=== PATIENT | male | born 2000 | race African-American/Black ===

== ENCOUNTER 2021-10-11 21:49 | Inpatient (IN) | payer OTHER, SELFPAY ==
--- NOTE | ~2021-10-11 | CT_ITS ---
EXAMINATION: CT ABDOMEN AND PELVIS WITH CONTRAST CLINICAL INFORMATION: Right lower quadrant pain. COMPARISON: None TECHNIQUE: Multidetector volumetric images were obtained from the superior aspect of the liver through the pubic symphysis following administration 85 mL of Omnipaque 350 intravenous contrast. Sagittal and coronal reformatted images were obtained on the technologist's workstation. Oral contrast: No This CT examination was performed using dose optimization techniques as appropriate, variously including the following: *Automated exposure control *Adjustment of mA and/or kV according to patient size (this includes techniques or standardized protocols for targeted exams where dose is matched to indication/reason for exam; i.e. extremities or head) *Use of iterative reconstruction technique DLP: 592 mGy-cm FINDINGS: LUNG BASES: The visualized lung bases are unremarkable. LIVER, GALLBLADDER, AND BILIARY TREE: The liver is normal in size, shape, and attenuation. No focal hepatic lesion or biliary ductal dilatation is present. The gallbladder is unremarkable with no evidence of radiopaque gallstones, gallbladder wall thickening, or obvious pericholecystic inflammatory changes. PANCREAS: Unremarkable. SPLEEN: Unremarkable. ADRENAL GLANDS: Unremarkable. KIDNEYS AND URETERS: The kidneys are normal in size, shape, and attenuation. No hydronephrosis, hydroureter, or calculi seen. No perinephric stranding. BLADDER: Normally distended bladder with circumferential mild wall thickening. GASTROINTESTINAL TRACT: The stomach is unremarkable. Normal caliber of the small bowel. There is no obstruction. While the appendix is normal in size measuring 0.7 cm, there does appear to be mild wall thickening with faint adjacent inflammation. No free air or fluid collection. The remainder of the colon is unremarkable. ABDOMINAL WALL: No significant hernia is appreciated. LYMPH NODES: Normal. VASCULAR: Unremarkable. PELVIC VISCERA: The prostate and seminal vesicles are unremarkable. OSSEOUS STRUCTURES: No acute or suspicious osseous abnormality. CT/CT abdomen pelvis w con IMPRESSION: While the appendix is normal in size, there does appear to be mild associated inflammation which is concerning for acute appendicitis. Mild circumferential bladder wall thickening could be secondary to underdistention, though cystitis is possible. Fleischner guidelines were followed.
[2021-10-11 21:52] VITALS: BP 152/81; PULSE 98; RESP 14; TEMP 37.4; O2SAT 100; BMI 25.3
[2021-10-11 22:33] VITALS: BP 139/71; PULSE 99; RESP 16; TEMP 37.2; O2SAT 100
--- NOTE | 2021-10-11 22:37 | ED_ITS ---
HPI - Abdominal Pain General Chief Complaint: Abdominal Pain Stated Complaint: lower abd pain Time Seen by Provider: 10/11/21 22:35 Source: patient Mode of arrival: ambulatory Limitations: no limitations History of Present Illness HPI narrative: Patient no significant past medical history woke up in the morning with mid abdominal pain radiating to right lower quadrant getting worse slowly unable to ambulate because of pain. Does not feel hungry slight nauseated no vomiting no fever no chills patient never had similar pain in the past no problem and urination no flank pain Related Data Allergies Allergy/AdvReac Type Severity Reaction Status Date / Time shellfish derived AdvReac Unknown Unknown Verified 10/11/21 22:02 Review of Systems Review of Systems Yes all other systems are reviewed and are negative Physical Exam Verdana 4l Vital Signs: Verdana 4d Verdana 4d Vital Signs: Verdana 4d Verdana 4Bd Last Vital Signs Verdana 4d Automatic Centrifugal Station Operator New 4d Automatic Centrifugal Station Operator New 4d Temp 98.4 F 10/12/21 00:42 Automatic Centrifugal Station Operator New 4d Pulse 89 10/12/21 00:42 Automatic Centrifugal Station Operator New 4d Resp 12 10/12/21 00:42 BP 132/76 10/12/21 00:42 Pulse Ox 100 10/12/21 00:42 BMI result Body Mass Index 25.3 Appearance: Alert. Oriented X3. In moderate distress Eyes: No pallor or icterus ENT: Pharynx normal. Oral Mucosa moist Neck: Normal inspection. Neck supple. CVS: Normal heart rate and rhythm. Pulses normal. Respiratory: No respiratory distress. Equal air entry bilateral, no wheezing/rales/rhonchi Abdomen: Soft, tenderness right lower quadrant with guarding no rebound tenderness Bowel sounds are present, no mass palpable, no CVA tenderness Skin: Skin warm and dry. Normal skin color. Normal skin turgor. Extremities: No lower extremity edema. No calf tenderness Neuro: Oriented X 3. MDM - Abdominal Pain MDM Narrative Medical decision making narrative: 1 AM Patient with significant right lower quadrant pain clinically appendicitis leukocytosis will start on Zosyn pending CT scan 1:15 CT scan showed normal size appendix with surrounding inflammation suggestive acute appendicitis call surgery for admission Case with surgeon Dr. Lo advised admission plan for surgery in the morning Lab Data Attestation: I reviewed the patient's lab results. Result diagrams: 10/11/21 23:16 10/11/21 23:16 Labs: Lab Results 10/11/21 10/11/21 10/11/21 Range/Units 23:16 23:16 23:16 WBC 17.2 H (4.8-10.8) X10*3/uL RBC 5.56 (4.60-5.80) X10*6/uL Hgb 16.8 (14.0-18.0) g/dl Hct 50.2 (42.0-52.0) % MCV 90.3 (80.0-98.0) fL MCH 30.2 (27.0-33.0) pg MCHC 33.5 (31.0-36.0) g/dl RDW 12.7 (11.0-16.0) % Plt Count 333 (160-400) X10*3/uL MPV 9.3 L (9.4-12.4) fL Immature Gran % (Auto) 0.3 (0.0-0.4) % Neut % (Auto) 79.8 H (45-73) % Lymph % (Auto) 9.5 L (20-40) % [place] % (Auto) 9.4 (2-11) % Eos % (Auto) 0.8 (0-4) % Baso % (Auto) 0.2 (0-2) % Lymph # (Auto) 1.6 (1.2-4.9) X10*3/uL [place] # (Auto) 1.6 H (0.1-1.2) X10*3/uL Eos # (Auto) 0.1 (0.0-0.4) X10*3/uL Baso # (Auto) 0.0 (0.0-0.2) X10*3/uL Abs Immat Gran (auto) 0.06 H (0.00-0.03) X10*3/uL Absolute Neuts (auto) 13.7 H (2.0-8.3) x10*3/uL Absolute Nucleated RBC 0.000 (0.0-0.012) X10*3/uL Nucleated RBC % (auto) 0.0 (0.0-0.2) /100WBC Smear Tech's Comments VERIFIED Sodium 140 (135-145) mmol/L Potassium 4.7 (3.3-5.1) mmol/L Chloride 103 (96-108) mmol/L Carbon Dioxide 27 (22-29) mmol/L Anion Gap 15 (12-20) BUN 14 (9-16) mg/dL Creatinine 0.99 (0.5-1.4) mg/dL Estim Creat Clear Calc 129.5 Estimated GFR > 60 Random Glucose 84 (60-115) mg/dL Lactic Acid 1.3 (0.5-2.0) mmol/L Calcium 10.2 (8.4-10.2) mg/dL Total Bilirubin 0.4 (0.0-1.0) mg/dL Direct Bilirubin 0.2 (0.0-0.5) mg/dL AST 23 (5-37) U/L ALT 21 (0-40) U/L Alkaline Phosphatase 76 (39-117) U/L Total Protein 8.3 H (6.5-8.0) g/dL Albumin 4.7 (3.5-5.0) g/dL Urine Color Urine Appearance Urine pH (5.0-8.0) Ur Specific [place] (1.005-1.025) Urine Protein (NEG-TRACE) MG/DL Urine Glucose (UA) (NEG) MG/DL Urine Ketones (NEG) MG/DL Urine Blood (NEG) Urine Nitrite (NEG) Ur Leukocyte Esterase (NEG) COVID-19 (GERALDINE) (Negative) COVID-19 Clin Com 10/11/21 10/11/21 Range/Units 23:16 23:37 WBC (4.8-10.8) X10*3/uL RBC (4.60-5.80) X10*6/uL Hgb (14.0-18.0) g/dl Hct (42.0-52.0) % MCV (80.0-98.0) fL MCH (27.0-33.0) pg MCHC (31.0-36.0) g/dl RDW (11.0-16.0) % Plt Count (160-400) X10*3/uL MPV (9.4-12.4) fL Immature Gran % (Auto) (0.0-0.4) % Neut % (Auto) (45-73) % Lymph % (Auto) (20-40) % [place] % (Auto) (2-11) % Eos % (Auto) (0-4) % Baso % (Auto) (0-2) % Lymph # (Auto) (1.2-4.9) X10*3/uL [place] # (Auto) (0.1-1.2) X10*3/uL Eos # (Auto) (0.0-0.4) X10*3/uL Baso # (Auto) (0.0-0.2) X10*3/uL Abs Immat Gran (auto) (0.00-0.03) X10*3/uL Absolute Neuts (auto) (2.0-8.3) x10*3/uL Absolute Nucleated RBC (0.0-0.012) X10*3/uL Nucleated RBC % (auto) (0.0-0.2) /100WBC Smear Tech's Comments Sodium (135-145) mmol/L Potassium (3.3-5.1) mmol/L Chloride (96-108) mmol/L Carbon Dioxide (22-29) mmol/L Anion Gap (12-20) BUN (9-16) mg/dL Creatinine (0.5-1.4) mg/dL Estim Creat Clear Calc Estimated GFR Random Glucose (60-115) mg/dL Lactic Acid (0.5-2.0) mmol/L Calcium (8.4-10.2) mg/dL Total Bilirubin (0.0-1.0) mg/dL Direct Bilirubin (0.0-0.5) mg/dL AST (5-37) U/L ALT (0-40) U/L Alkaline Phosphatase (39-117) U/L Total Protein (6.5-8.0) g/dL Albumin (3.5-5.0) g/dL Urine Color STRAW Urine Appearance CLEAR Urine pH 6.5 (5.0-8.0) Ur Specific [place] 1.020 (1.005-1.025) Urine Protein NEG (NEG-TRACE) MG/DL Urine Glucose (UA) NEG (NEG) MG/DL Urine Ketones NEG (NEG) MG/DL Urine Blood NEG (NEG) Urine Nitrite NEG (NEG) Ur Leukocyte Esterase NEG (NEG) COVID-19 (GERALDINE) Negative (Negative) COVID-19 Clin Com See Note Discharge Plan Discharge Clinical Impression: Acute appendicitis Patient Disposition: Admitted As Inpatient [facility] Past Medical History Medical History No known health problems Social History Social History Advance Directives: No
[2021-10-11 23:19] VITALS: RESP 16
[2021-10-11] MEDS: ondansetron HCL 4 MG/2 ML VIAL IVPUSH (23:19)
[2021-10-11] MEDS: Morphine Sulfate 4 MG/ML CARTRIDGE IVPUSH (23:19)
[2021-10-11] MEDS: 0.9 % Sodium Chloride 1,000 ML 999 ML IV (23:21)
[2021-10-11 23:24] LABS: Basophils Percent Auto 0.2 % (0-2); Eosinophils Absolute Auto 0.1 X10*3/uL (0.0-0.4); Eosinophils Percent Auto 0.8 % (0-4); Hematocrit 50.2 % (42.0-52.0); Hemoglobin 16.8 g/dl (14.0-18.0); Imm Gran Abs Auto 0.06 X10*3/uL (0.00-0.03); Imm Gran Pct Auto 0.3 % (0.0-0.4); Lymphocytes Absolute Auto 1.6 X10*3/uL (1.2-4.9); Lymphocytes Percent Auto 9.5 % (20-40); Mean Corpuscular HGB Conc 33.5 g/dl (31.0-36.0); Mean Corpuscular Hemoglobin 30.2 pg (27.0-33.0); Mean Corpuscular Volume 90.3 fL (80.0-98.0); Mean Platelet Volume 9.3 fL (9.4-12.4); Monocytes Absolute Auto 1.6 X10*3/uL (0.1-1.2); Monocytes Percent Auto 9.4 % (2-11); Neutrophils Absolute Auto 13.7 x10*3/uL (2.0-8.3); Neutrophils Percent Auto 79.8 % (45-73); Platelet Count 333 X10*3/uL (160-400); Red Blood Count 5.56 X10*6/uL (4.60-5.80); Red Cell Distribution Width 12.7 % (11.0-16.0); SCAN SMEAR FLAG 1; White Blood Count 17.2 X10*3/uL (4.8-10.8)
[2021-10-11 23:27] LABS: MANUAL DIFF FLAG SCAN
[2021-10-11 23:38] LABS: COVID-19 Test Negative (Negative)
[2021-10-11 23:41] LABS: SLIDE REVIEW VERIFIED
[2021-10-11 23:44] LABS: Appearance Urine CLEAR; Color Urine STRAW; Glucose Urine UA NEG (NEG); Leukocyte Esterase Urine NEG (NEG); Nitrite Urine NEG (NEG); PH 6.5 (5.0-8.0); Urine Blood NEG (NEG); Urine Ketones NEG (NEG); Urine Protein NEG (NEG-TRACE)
[2021-10-11 23:46] LABS: Lactic Acid 1.3 mmol/L (0.5-2.0)
[2021-10-12] VITALS (19 sets, daily range): BP systolic 107–148; BP diastolic 51–78; PULSE 78–98; RESP 12–20; TEMP 36.3–36.9; O2SAT 96–100; BMI 25.7
[2021-10-12] MEDS: Piperacillin Sodium/Tazobactam 3.375 GM in 0.9 % Sodium Chloride 50 ML IV ×2 (00:03→06:04)
[2021-10-12 00:12] LABS: Alanine Aminotransferase 21 U/L (0-40); Albumin Level 4.7 g/dL (3.5-5.0); Alkaline Phosphatase 76 U/L (39-117); Anion Gap 15 (12-20); Aspartate Amino Transferase 23 U/L (5-37); Bilirubin Direct 0.2 mg/dL (0.0-0.5); Bilirubin Total 0.4 mg/dL (0.0-1.0); Blood Urea Nitrogen 14 mg/dL (9-16); Calcium 10.2 mg/dL (8.4-10.2); Carbon Dioxide 27 mmol/L (22-29); Chloride 103 mmol/L (96-108); Creatinine Clr Calc Pharmacy 129.5; Estimated Glomerular Filt Rate > 60; Glucose Random 84 mg/dL (60-115); Potassium 4.7 mmol/L (3.3-5.1); Sodium 140 mmol/L (135-145); Total Protein 8.3 g/dL (6.5-8.0)
[2021-10-12] MEDS: iohexoL 350 MG/ML 100 ML INFUS..BTL 85 ML IV (01:02)
[2021-10-12] MEDS: 0.9 % Sodium Chloride 1,000 ML 100 ML IVCONT ×2 (02:53→14:02)
[2021-10-12] MEDS: Morphine Sulfate 4 MG/ML CARTRIDGE IVPUSH (03:21)
--- NOTE | 2021-10-12 06:03 | PC.NURSE ---
PT stated that he only feels pain when he moves around in bed.
--- NOTE | 2021-10-12 07:21 | PC.NURSE ---
pt in bed in no acute distress with good pain control. he denies nausea. awaiting surgical consult
--- NOTE | 2021-10-12 08:34 | P.HPGS_ITS ---
History of Present Illness History of Present Illness Date of Service: 10/12/21 <Balbina Vidal PA-C - Last Filed: 10/12/21 08:50> 10/12/21 <Long Harrison MD - Last Filed: 10/12/21 09:10> Chief complaint: appendicitis <Balbina Vidal PA-C - Last Filed: 10/12/21 08:50> Narrative: Angel Hamm is a 20 year old healthy male who presented to the ED with complaints of acute onset of abdominal pain. He reports yesterday morning he was awoken out of sleep from the pain. It began periumbilically and e ventually migrated to the RLQ where it has persisted. It is severe. It is associated with anorexia and nausea without vomiting. He denies fever, chills, diarrhea, change in bowel habits, previous episodes of similar pain. Work up in the ED included CT scan abd/pelvis which showed mild wall thickening with faint adjacent inflammation of the appendix. Labs revealed a leukocytosis of 17.2. He reports the pain medication helps a little but the pain is still present and becomes severe with movement. <Balbina Vidal PA-C - Last Filed: 10/12/21 08:50> Review of Systems Verdana 4l Constitutional: Verdana 4d Constitutional: Verdana 4d Verdana 4d Reports as per HPI, Reports anorexia, Denies fever(s), Denies night sweats and Denies weight loss Verdana 4Il <Balbina Vidal PA-C - Last Filed: 10/12/21 08:50> Verdana 4d Verdana 4l ENT: Verdana 4d Denies dizziness Verdana 4Il <Balbina Vidal PA-C - Last Filed: 10/12/21 08:50> Verdana 4d Verdana 4l Cardiovascular: Verdana 4d Cardiovascular: Verdana 4d Verdana 4d Denies chest pain, Denies palpitations and Denies dyspnea Verdana 4Il <MELISSA Long Last Filed: 10/12/21 08:50> Verdana 4d Verdana 4l Respiratory: Verdana 4d Verdana 4d Respiratory: Verdana 4d Denies cough and Denies dyspnea Verdana 4Il <Balbina Vidal PA-C - Last Filed: 10/12/21 08:50> Verdana 4d Verdana 4l Gastrointestinal: Verdana 4d Gastrointestinal: Verdana 4d Verdana 4d Reports as per HPI and Denies hematochezia Verdana 4Il <Balbina Vidal PA-C - Last Filed: 10/12/21 08:50> Verdana 4d Verdana 4l Genitourinary: Verdana 4d Verdana 4d Genitourinary: Verdana 4d Denies hematuria and Denies dysuria Verdana 4Il <Balbina Vidal PA-C - Last Filed: 10/12/21 08:50> Verdana 4d Verdana 4l Integumentary/Breasts: Verdana 4d Skin/Breast: Verdana 4d Verdana 4d Denies rash Verdana 4Il <Balbina Vidal PA-C - Last Filed: 10/12/21 08:50> Verdana 4d Verdana 4l Neurologic: Verdana 4d Denies dizziness and Denies focal weakness Verdana 4Il <Balbina Vidal PA-C - Last Filed: 10/12/21 08:50> Verdana 4d Verdana 4l Endocrine: Verdana 4d Verdana 4d Endocrine: Verdana 4d Denies palpitations Verdana 4Il <Balbina Vidal PA-C - Last Filed: 10/12/21 08:50> Verdana 4d [facility] Past Medical History Medical History: Medical History No known health problems <Balbina Vidal PA-C - Last Filed: 10/12/21 08:50> Social History Social History: Social History (Updated 10/12/21 @ 08:40 by Balbina Vidal PA-C) Frequency of e-Cigarette/Vaping Use: daily, quit 2 weeks ago Advance Directives: No <MELISSA Long Last Filed: 10/12/21 08:50> Meds Allergies/Adverse reactions: Allergies Allergy/AdvReac Type Severity Reaction Status Date / Time shellfish derived AdvReac Unknown Unknown Verified 10/11/21 22:02 <Balbina Vidal PA-C - Last Filed: 10/12/21 08:50> Active Medications: Current Medications Sodium Chloride (Ns) 1,000 mls @ 100 mls/hr IVCONT .Q10H [facility] Last Admin: 10/12/21 02:53 Dose: 100 mls/hr Documented by: Piperacillin Sod/Tazobactam (Sod 3.375 gm/ Sodium Chloride) 50 mls @ 100 mls/hr IV RQ6H [facility] Last Infusion: 10/12/21 07:01 Dose: Infused Documented by: Cefotetan Disodium 2 gm/ (Sodium Chloride) 50 mls @ 100 mls/hr IV PREOP ONE Stop: 10/12/21 08:54 Morphine Sulfate (Morphine Sulfate 4 Mg/Ml Cartridge) 4 mg IVPUSH Q4H PRN; Protocol PRN Reason: Pain, Severe (Pain Scale 7-10) Last Admin: 10/12/21 03:21 Dose: 4 mg Documented by: Ondansetron HCl (Ondansetron Hcl 4 Mg/2 Ml Vial) 4 mg IVPUSH Q8H PRN PRN Reason: Nausea and Vomiting Sodium Chloride (0.9 % Sodium Chloride Flush 3 Ml Syringe) 3 ml IVFLUSH QSHIFT [facility] Last Admin: 10/12/21 07:16 Dose: Not Given Documented by: <Balbina Vidal PA-C - Last Filed: 10/12/21 08:50> Home medications: Home Medications Medication Instructions Recorded Confirmed Last Taken Type No Known Home Meds 10/12/21 10/12/21 Unknown History <Balbina Vidal PA-C - Last Filed: 10/12/21 08:50> Physical Exam Verdana 4l Vital Signs: Verdana 4d Verdana 4d Vital Signs: Verdana 4d Verdana 4Bd Last Vital Signs Verdana 4d Donor Technician New 4d Donor Technician New 4d Temp 98.3 F 10/12/21 07:15 Donor Technician New 4d Pulse 80 10/12/21 07:15 Donor Technician New 4d Resp 14 10/12/21 07:15 BP 109/54 L 10/12/21 07:15 Pulse Ox 99 10/12/21 07:15 BMI result Body Mass Index 25.3 <Balbina SquiresALYSHA fournierRenee Doll Last Filed: 10/12/21 08:50> Const: General: comfortable, no acute distress and alert <Balbina ALYSHA VidalRenee Doll Last Filed: 10/12/21 08:50> Orientation/consciousness: patient oriented x3 <Balbina SquiresSHAWN fournierElva Doll Last Filed: 10/12/21 08:50> HENMT: Head: Yes normal to inspection <Balbina SquiresSHAWN fournierElva Doll Last Filed: 10/12/21 08:50> Eyes: Sclerae: sclerae normal <Balbina SquiresSHAWN fournierElva Last Filed: 10/12/21 08:50> Resp: Effort & Inspection: normal respiratory effort <Balbina SquiresSHAWN fournierElva Doll Filed: 10/12/21 08:50> Cardio: Rate: regular rate <Balbina SquiresSHAWN fournierElva Doll Filed: 10/12/21 08:50> Rhythm: regular rhythm <Balbina SquiresSHAWN fournierElva Doll Last Filed: 10/12/21 08:50> GI: Inspection: Yes normal to inspection and No distended <Balbina SquiresSHAWN fournierElva Doll Last Filed: 10/12/21 08:50> Palpation (GI): Soft to palpation and Tenderness to palpation present (GI) in the RLQ and with rebound tenderness; Negative for Rovsing's sign negative <Balbina SquiresALYSHA fournierRenee Doll Last Filed: 10/12/21 08:50> Percussion: Yes normal to percussion <Balbina SquiresALYSHA fournierRenee Doll Last Filed: 10/12/21 08:50> Skin: Other: warm and dry <Balbina SHAWN VidalElva iSECUREtrac Last Filed: 10/12/21 08:50> General skin exam: no rashes or lesions noted <Balbina SHAWN VidalElva Doll Last Filed: 10/12/21 08:50> Neuro: General: patient oriented x3 <BalbinaSHAWN RandhawaElva Doll Last Filed: 10/12/21 08:50> Extrem: General: Yes no clubbing, cyanosis or edema <MELISSA Long Last Filed: 10/12/21 08:50> Results Results Labs: Short CBC 10/11/21 Range/Units 23:16 WBC 17.2 H (4.8-10.8) X10*3/uL Hgb 16.8 (14.0-18.0) g/dl Hct 50.2 (42.0-52.0) % Plt Count 333 (160-400) X10*3/uL BMP 10/11/21 23:16 Sodium 140 Potassium 4.7 Chloride 103 Carbon Dioxide 27 BUN 14 Creatinine 0.99 Calcium 10.2 Liver Function 10/11/21 Range/Units 23:16 Total Bilirubin 0.4 (0.0-1.0) mg/dL Direct Bilirubin 0.2 (0.0-0.5) mg/dL AST 23 (5-37) U/L ALT 21 (0-40) U/L Alkaline Phosphatase 76 (39-117) U/L Albumin 4.7 (3.5-5.0) g/dL Urine 10/11/21 Range/Units 23:37 Urine Color STRAW Urine Appearance CLEAR Urine pH 6.5 (5.0-8.0) Ur Specific [place] 1.020 (1.005-1.025) Urine Protein NEG (NEG-TRACE) MG/DL Urine Glucose (UA) NEG (NEG) MG/DL <MELISSA Long Last Filed: 10/12/21 08:50> Assessment and Plan (1) Acute appendicitis: Status: Acute <MELISSA Long Last Filed: 10/12/21 08:50> Plan 20 year old healthy male who presented with periumbilical abd pain that migrated to RLQ associated with anorexia and nausea found to have mild wall thickening with faint adjacent inflammation of the appendix and a leukocytosis of 17.2. Clinical picture consistent with early acute appendicitis. Treatment options were discussed with the patient including observation and IV abx therapy versus proceeding with laparoscopic appendectomy possible open. Technique of the procedure, risks and benefits including infection, bleeding, injury to surrounding organs including the bowel, bladder, vasculature. He understands and would like to proceed with surgery. He will be added onto the OR schedule for today. Cont NPO status, IVF, IV zosyn. Patient discussed with Dr. Harrison. <Balbina Vidal PA-C - Last Filed: 10/12/21 08:50> 20 year old healthy male who presented with periumbilical abd pain that migrated to RLQ associated with anorexia and nausea found to have mild wall thickening with faint adjacent inflammation of the appendix and a leukocytosis of 17.2. Clinical picture consistent with early acute appendicitis. Treatment options were discussed with the patient including observation and IV abx therapy versus proceeding with laparoscopic appendectomy possible open. Technique of the proc edure, risks and benefits including infection, bleeding, injury to surrounding organs including the bowel, bladder, vasculature. He understands and would like to proceed with surgery. He will be added onto the OR schedule for today. Cont NPO status, IVF, IV zosyn. Patient discussed with Dr. Harrison. Patient independently evaluated and examined and the labs/CT reviewed. Examination does show tenderness in the RLQ with localized rebound. CT with a thickened and inflamed appendix consistent with appendicitis. I agree with the above assessment and plan. After a discussion of the procedure, alternatives (antibiotics) and risks, he consents to the laparoscopic or possible open appendectomy. <Long Harrison MD - Last Filed: 10/12/21 09:10> Quality Stroke Does the patient have a stroke diagnosis?: No <Balbina Vidal PA-C - Last Filed: 10/12/21 08:50> VTE Prior VTE?: No <Balbina Vidal PA-C - Last Filed: 10/12/21 08:50> VTE Risk Level:: Surgical - low <Balbina Vidal PA-C - Last Filed: 10/12/21 08:50> VTE Device Contraindication: N/A - Device Ordered <Balbina Vidal PA-C - Last Filed: 10/12/21 08:50> VTE Drug Contraindication: N/A - Med Ordered <Balbina Vidal PA-C - Last Filed: 10/12/21 08:50> Procedures Date of Service Date of Service: 10/12/21 <Balbina Vidal PA-C - Last Filed: 10/12/21 08:50>
--- NOTE | 2021-10-12 08:41 | PHA.MEDREC ---
Pharmacy Consult ? Medication Reconciliation Pharmacy has completed the medication reconciliation. Patient reports no medication at home. Tamy Richey, ArnieD
--- NOTE | 2021-10-12 10:56 | P.CONAN_ITS ---
HPI - Anesthesia Eval Consult details Narrative: Appendicitis PMFSH Active Problems Active Problems: All Active Problems (Updated 10/12/21 @ 01:11 by Sumit Chase MD) Acute appendicitis (Acute) Past Medical History Medical History No known health problems Family History Family history of problems with anesthesia: No Surgical History History of Problems with Anesthesia: No Social History Social History (Updated 10/12/21 @ 08:40 by Balbina Vidal PA-C) Tobacco use type: Smokeless Tobacco Meds Allergies Allergy/AdvReac Type Severity Reaction Status Date / Time shellfish derived AdvReac Unknown Unknown Verified 10/11/21 22:02 Active Medications: Current Medications Sodium Chloride (Ns) 1,000 mls @ 100 mls/hr IVCONT .Q10H [facility] Last Admin: 10/12/21 02:53 Dose: 100 mls/hr Documented by: Piperacillin Sod/Tazobactam (Sod 3.375 gm/ Sodium Chloride) 50 mls @ 100 mls/hr IV RQ6H [facility] Last Infusion: 10/12/21 07:01 Dose: Infused Documented by: Morphine Sulfate (Morphine Sulfate 4 Mg/Ml Cartridge) 4 mg IVPUSH Q4H PRN; Protocol PRN Reason: Pain, Severe (Pain Scale 7-10) Last Admin: 10/12/21 03:21 Dose: 4 mg Documented by: Ondansetron HCl (Ondansetron Hcl 4 Mg/2 Ml Vial) 4 mg IVPUSH Q8H PRN PRN Reason: Nausea and Vomiting Sodium Chloride (0.9 % Sodium Chloride Flush 3 Ml Syringe) 3 ml IVFLUSH QSHIFT [facility] Last Admin: 10/12/21 07:16 Dose: Not Given Documented by: Home Medications Medication Instructions Recorded Confirmed Last Taken Type No Known Home Meds 10/12/21 10/12/21 Unknown History Exam Exam Date and Time: October 12, 2021 1056 Height,Weight and Vital Signs: Height 6 ft Weight 84.822 kg Last Vital Signs Temp 98.2 F 10/12/21 10:21 Pulse 90 10/12/21 10:21 Resp 18 10/12/21 10:21 BP 134/76 10/12/21 10:21 Pulse Ox 96 10/12/21 10:21 Pertinent Lab Results Pertinent Lab Results: Laboratory Tests 10/11/21 10/11/21 10/11/21 23:16 23:16 23:16 WBC 17.2 H RBC 5.56 Hgb 16.8 Hct 50.2 MCV 90.3 MCH 30.2 MCHC 33.5 RDW 12.7 Plt Count 333 MPV 9.3 L Immature Gran % (Auto) 0.3 Neut % (Auto) 79.8 H Lymph % (Auto) 9.5 L [place] % (Auto) 9.4 Eos % (Auto) 0.8 Baso % (Auto) 0.2 Lymph # (Auto) 1.6 [place] # (Auto) 1.6 H Eos # (Auto) 0.1 Baso # (Auto) 0.0 Abs Immat Gran (auto) 0.06 H Absolute Neuts (auto) 13.7 H Absolute Nucleated RBC 0.000 Nucleated RBC % (auto) 0.0 Smear Tech's Comments VERIFIED Sodium 140 Potassium 4.7 Chloride 103 Carbon Dioxide 27 Anion Gap 15 BUN 14 Creatinine 0.99 Estim Creat Clear Calc 129.5 Estimated GFR > 60 Random Glucose 84 Lactic Acid 1.3 Calcium 10.2 Total Bilirubin 0.4 Direct Bilirubin 0.2 AST 23 ALT 21 Alkaline Phosphatase 76 Total Protein 8.3 H Albumin 4.7 Urine Color Urine Appearance Urine pH Ur Specific [place] Urine Protein Urine Glucose (UA) Urine Ketones Urine Blood Urine Nitrite Ur Leukocyte Esterase COVID-19 (GERALDINE) COVID-19 [employer] Com 10/11/21 10/11/21 23:16 23:37 WBC RBC Hgb Hct MCV MCH MCHC RDW Plt Count MPV Immature Gran % (Auto) Neut % (Auto) Lymph % (Auto) [place] % (Auto) Eos % (Auto) Baso % (Auto) Lymph # (Auto) [place] # (Auto) Eos # (Auto) Baso # (Auto) Abs Immat Gran (auto) Absolute Neuts (auto) Absolute Nucleated RBC Nucleated RBC % (auto) Smear Tech's Comments Sodium Potassium Chloride Carbon Dioxide Anion Gap BUN Creatinine Estim Creat Clear Calc Estimated GFR Random Glucose Lactic Acid Calcium Total Bilirubin Direct Bilirubin AST ALT Alkaline Phosphatase Total Protein Albumin Urine Color STRAW Urine Appearance CLEAR Urine pH 6.5 Ur Specific [place] 1.020 Urine Protein NEG Urine Glucose (UA) NEG Urine Ketones NEG Urine Blood NEG Urine Nitrite NEG Ur Leukocyte Esterase NEG COVID-19 (GERALDINE) Negative COVID-19 Clin Com See Note Airway Mallampati Class: II TM Dist: >3cm Neck ROM: Full Loose/Missing/Broken Teeth: No Heart: [id number] Lungs: cta b/l Assessment and Plan Assessment Anesthesia Assessment: Anesthesia Plan Discussed and Chart Reviewed Final Anesthetic Review Family History of Problems with Anesthesia: No History of Problems with Anesthesia: No NPO: Yes ASA Class: I and Emergency Final Preanesthetic Review: No Changes in Pt Med Stat, Meds/Allgs Chart Reviewed, Consent Obtained/Reviewed and Anes Risks/Benef Reviewed Patient Risk: Low Procedure Risk: Low Assessment/Block/Sedation in SS: Assess/Block/Sedation-SS Anesthetic Plan Anesthetic Plan: GA and Agree w/ Assess. and Plan Disposition: Standard PACU
--- NOTE | 2021-10-12 12:49 | W.PM.OPN ---
Operative Note Operative Note Date of Service: 10/12/21 Narrative: Preoperative diagnosis: Acute appendicitis Postoperative diagnosis: Same Procedure: Laparoscopic appendectomy Surgeon: Long Harrison MD Oxygen Equipment Aide:BRENNA Long Anesthesia: General endotracheal Indications for procedure:[age] year old male patient with pain in the RLQ, tender to palpation in the RLQ, elevated WBC, early appendicitis by CT. Operative findings:Acute appendicitis without perforation Specimen:appendix Estimated blood loss:1 ml Complications: none Procedure details: Patient was brought to the OR and placed in a supine position. After administering general anesthesia the patient's abdomen was prepped with ChloraPrep and draped in a sterile fashion. A surgical time-out was called and consent confirmed. Patient received preoperative antibiotics and Venodyne boots were in place. Local anesthesia consisting of 0.5% Sensorcaine without epinephrine was infiltrated in periumbilical region. A 5 mm incision was made below the umbilicus and carried down through subcutaneous tissue. A Veress needle was then inserted while elevating abdominal cavity with towel clips. After a positive drop test the abdomen was insufflated to a pressure of 15 mm of mercury. The Veress needle was removed and a 5 mm trocar inserted. The camera was then inserted in the abdomen explored. A 2nd 5 mm trocars placed in the lower midline. A 12 mm trocar was then placed in the left lower quadrant. The patient was then placed in a Trendelenburg position and rotated to the left. The appendix was identified in the right lower quadrant and brought up using blunt dissecting clamps. The mesentery of the appendix was then divided using the LigaSure. The appendiceal artery was cauterized and divided using the LigaSure. Dissection was continued down to the base of the cecum. An Endo-GULSHAN stapler with a purple reload was then used to divide the appendix at the base with the cecum. The appendix was then placed in Endo-Catch bag and brought out through the left lower quadrant incision. The abdomen was then irrigated with saline solution and suctioned dry. Wounds were checked for hemostasis. CO2 was then evacuated from the abdominal cavity and all trocars removed. Fascia was closed in the left lower quadrant incision using a [id number] 0 Polysorb suture. Skin was closed at all incisions using a subcuticular 4-0 Polysorb suture. Steri-Strips 2 x 2 gauze and Tegaderm were then applied. The patient tolerated the procedure well. Sponge, instrument, needle counts reported as correct. The patient was transferred to PACU in stable condition.
[2021-10-12] MEDS: oxyCODONE HCl Immed Release 5 MG TABLET 10 MG PO (13:42)
--- NOTE | 2021-10-12 15:41 | MHC.CM.PN ---
CM ATTEMPTED TO SEE PT WHO WAS OFF UNIT IN [facility] CM WILL REVISIT
--- NOTE | 2021-10-12 17:28 | PC.NURSE ---
patient oob ambulated to bathroom to void large amount. steady gait. no nausea.
--- NOTE | 2021-10-12 19:02 | PC.NURSE ---
POST OP PATIENT AGE 20, S/P LAPAROSCOPIC APPENDECTOMY, ARRIVED VIA STRETCHER FROM PACU APPROX., 1810. ALERT, ORIENTED, CALM, CO-OP. PT DENIED PAIN, AMBULATED WELL STRETCHER TO BED, ATE SOME DINNER BUT DIDNT WANT TO OVER DO IT. #20 ANGIO TO LEFT AC, IVF NS AT 100 ML/HR. ADMISSION COMPLETED, ORIENTED TO CALL LE, BED CONTROLS, TV, AND PLAN OF CARE.
[2021-10-13] MEDS: 0.9 % Sodium Chloride 1,000 ML 100 ML IVCONT ×2 (00:09→09:52)
[2021-10-13 03:34] VITALS: BP 117/51; PULSE 82; RESP 20; TEMP 36.8; O2SAT 99
[2021-10-13] MEDS: oxyCODONE HCl Immed Release 5 MG TABLET PO ×2 (03:35→08:13)
--- NOTE | 2021-10-13 07:15 | P.PNGS_ITS ---
Subjective Subjective Date of Service: 10/13/21 Interval history: Patient reports some pain in the umbilical incision, not using much pain medication. Tolerated po without nausea or vomiting Physical Exam Verdana 4l Vital Signs: Verdana 4d Verdana 4d Vital Signs: Verdana 4d Verdana 4Bd Last Vital Signs Verdana 4d Databases Software Consultant New 4d Databases Software Consultant New 4d Temp 98.3 F 10/13/21 03:34 Databases Software Consultant New 4d Pulse 82 10/13/21 03:34 Databases Software Consultant New 4d Resp 20 10/13/21 03:34 BP 117/51 L 10/13/21 03:34 Pulse Ox 99 10/13/21 03:34 BMI result Body Mass Index 25.7 Const: General: cooperative and no acute distress Nutritional Appearance: well nourished Orientation/consciousness: patient oriented x3 Limitations: no limitations HENMT: Head: Yes normocephalic and Yes atraumatic Resp: Other: Breathing comfortably on room air, no respiratory distress GI: Other: the incisions are clean, dry, and intact abdomen soft and nondistended. Skin: Other: warm, dry, no rash Neuro: General: patient oriented x3 Extrem: Other: No edema Objective Data Active Medications Sodium Chloride (Ns) 1,000 mls @ 100 mls/hr IVCONT .Q10H [facility] Last Admin: 10/13/21 00:09 Dose: 100 mls/hr Documented by: FEMI Morphine Sulfate (Morphine Sulfate 4 Mg/Ml Cartridge) 4 mg IVPUSH Q4H PRN; Prot ocol PRN Reason: Pain, Severe (Pain Scale 7-10) Last Admin: 10/12/21 03:21 Dose: 4 mg Documented by: JADON Ondansetron HCl (Ondansetron Hcl 4 Mg/2 Ml Vial) 4 mg IVPUSH Q8H PRN PRN Reason: Nausea and Vomiting Oxycodone HCl (Oxycodone Hcl Immed Release 5 Mg Tablet) 5 mg PO Q4H PRN PRN Reason: Pain, Moderate (Pain Scale 4-6 Last Admin: 10/13/21 03:35 Dose: 5 mg Documented by: FEMI Sodium Chloride (0.9 % Sodium Chloride Flush 3 Ml Syringe) 3 ml IVFLUSH QSHIFT [facility] Last Admin: 10/13/21 07:13 Dose: Not Given Documented by: YOLI Non-Admin Reason: IV Running Labs CBC & Chem 7: 10/11/21 23:16 10/11/21 23:16 Microbiology Microbiology Results: Microbiology 10/11/21 23:37 Blood Culture - Preliminary Blood - Venous No growth after 24 hours. 10/11/21 23:16 Blood Culture - Preliminary Blood - Venous No growth after 24 hours. Procedures Date of Service Date of Service: 10/13/21 Progress Note: A&P Assessment and plan (1) Acute appendicitis: Status: Acute (2) S/P appendectomy: Status: Acute Plan 20-year-old male patient status post laparoscopic appendectomy 1 day ago. He tolerated the surgery well and his wounds are clean and intact. He is tolerating diet without nausea or vomiting. Patient will be discharged to home with follow-up in the office in 1 week. Was advised to avoid lifting greater than 10 lb for the next 2 weeks. He may resume a regular diet. Fall Risk Details Current Medications: Current Medications Sodium Chloride (Ns) 1,000 mls @ 100 mls/hr IVCONT .Q10H [facility] Last Admin: 10/13/21 00:09 Dose: 100 mls/hr Documented by: Morphine Sulfate (Morphine Sulfate 4 Mg/Ml Cartridge) 4 mg IVPUSH Q4H PRN; Protocol PRN Reason: Pain, Severe (Pain Scale 7-10) Last Admin: 10/12/21 03:21 Dose: 4 mg Documented by: Ondansetron HCl (Ondansetron Hcl 4 Mg/2 Ml Vial) 4 mg IVPUSH Q8H PRN PRN Reason: Nausea and Vomiting Oxycodone HCl (Oxycodone Hcl Immed Release 5 Mg Tablet) 5 mg PO Q4H PRN PRN Reason: Pain, Moderate (Pain Scale 4-6 Last Admin: 10/13/21 03:35 Dose: 5 mg Documented by: Sodium Chloride (0.9 % Sodium Chloride Flush 3 Ml Syringe) 3 ml IVFLUSH QSHIFT [facility] Last Admin: 10/13/21 07:13 Dose: Not Given Documented by: Time Spent With Patient Time: Total time spent is greater than 50% in coordination of care (as documented) at patient's floor/unit and/or counseling patient: Time with patient: 15 - 24 minutes Quality Stroke Does the patient have a stroke diagnosis?: No VTE Prior VTE?: No VTE Risk Level:: Surgical - low VTE Device Contraindication: N/A - Device Ordered VTE Drug Contraindication: N/A - Med Ordered
[2021-10-13 08:00] VITALS: BP 127/70; PULSE 90; RESP 20; TEMP 37.1; O2SAT 100
--- NOTE | 2021-10-13 08:57 | MHC.CM.PN ---
Addendum entered by Jade Rosales RN 10/13/21 09:52: PT FULLY VACCINATED AND BOOSTERED W/MODERNA, BOOSTER GIVEN 09/22/21. 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 PT VERIFIES PCP IS ILDEFONSO BURGESS MD IN [place], PT PROVIDED EDUCATION ON HCP'S AND PT DECLINES TO COMPLETE. D/C PLAN: RETURN TO CAMPUS, FRIENDS FOR TRANSPORT
--- NOTE | 2021-10-13 09:05 | HO.POSTANES ---
Post Anesthesia Evaluation Post Anesthesia Evaluation Vital Signs: Vital Signs Temp Pulse Resp BP Pulse Ox 10/13/21 08:00 98.7 F 90 20 127/70 100 10/13/21 03:34 98.3 F 82 20 117/51 L 99 10/12/21 23:04 98.1 F 84 16 135/61 99 Anesthesia: General Endotracheal-GETA Mental Status: Awake Pain Control: Satisfactory Nausea/Vomiting: None Hydration: Adequate Anesthesia-Related Issues: No Anes. Related Issues
--- NOTE | 2021-10-13 10:25 | P.DS_ITS ---
DS: Providers Provider Date of Service: 10/13/21 Date of admission: 10/12/21 02:01 Primary care physician: Unknown Physician Attending physician on admission: Lnog Harrison DS: Diagnosis Discharge Diagnosis (1) Acute appendicitis: Status: Acute (2) S/P appendectomy: Status: Acute DS: Summary Hospital Course Hospital Course: BRIEF HPI: ? Angel Hamm is a 20 year old healthy male who presented to the ED with complaints of acute onset of abdominal pain. He reports yesterday morning he was awoken out of sleep from the pain. It began periumbilically and eventually migrated to the RLQ where it has persisted. It is severe. It is associated with anorexia and nausea without vomiting. He denies fever, chills, diarrhea, change in bowel habits, previous episodes of similar pain. Work up in the ED included CT scan abd/pelvis which showed mild wall thickening with faint adjacent inflammation of the appendix. Labs revealed a leukocytosis of 17.2. He reports the pain medication helps a little but the pain is still present and becomes severe with movement. HOSPITAL COURSE: He was admitted to the surgical service for further management of early acute appendicitis. Treatment options were discussed and he elected to proceed with appendectomy. He was kept NPO, on IVF, IV zosyn and IV morphine as needed for pain. On 10/12/21, a laparoscopic appendectomy was performed by Dr. Harrison without complication. The patient tolerated the procedure well, completed routine recovery in PACU and was admitted for observation. He had an uncomplicated recovery course. On POD #1, he felt better. His pain was controlled on PO analgesics. He was tolerating a solid diet and ambulating without difficulty. His abdomen was benign with appropriate post op tenderness and clean incisions. He felt ready for discharge. He was discharged to home on 10/13/21 in stable condition. He is to follow up with Dr. Harrison in office in 1 week. Status at Discharge Functional status at discharge: independent ambulation Overall status at discharge: patient is progressing back to baseline Time Spent with Patient Time attestation: Total time spent providing and/or coordinating discharge services: Discharge coordination time: Less than 30 minutes Quality: Stroke Does the patient have a stroke diagnosis?: No Physical Exam Verdana 4l Vital Signs: Verdana 4d Verdana 4d Vital Signs: Verdana 4d Verdana 4Bd Last Vital Signs Verdana 4d 4d Clinical Quality Manager 4d Temp 98.7 F 10/13/21 08:00 4d Pulse 90 10/13/21 08:00 Clinical Quality Manager New 4d Resp 20 10/13/21 08:00 BP 127/70 10/13/21 08:00 Pulse Ox 100 10/13/21 08:00 BMI result Body Mass Index 25.7 Const: General: comfortable, no acute distress and alert Orientation/consciousness: patient oriented x3 Resp: Effort & Inspection: normal respiratory effort GI: Inspection: No distended and Yes incision (dressings c/d/i) Palpation (GI): Soft to palpation, Tenderness to palpation present (GI) (mild, incisional), no guarding and not rigid Percussion: Yes normal to percussion Skin: General skin exam: no rashes or lesions noted Neuro: General: patient oriented x3 Extrem: General: Yes no clubbing, cyanosis or edema DS: Data Data Completed and Pending Pending studies at discharge: Pending at discharge 10/12/21 12:32 Surgical [PTH] Routine Labs on day of discharge: Preliminary micro results at discharge 10/11/21 23:37 Blood Culture - Preliminary Blood - Venous No growth after 24 hours. 10/11/21 23:16 Blood Culture - Preliminary Blood - Venous No growth after 24 hours. Discharge Plan Discharge Patient Disposition: Home, Self-Care Discharge Diagnosis: acute appendicitis s/p laparoscopic appendectomy Referrals: Long Harrison MD [Physician] - 1 Week PhysicianMarilin [Primary Care Provider] - 1 Week Discharge Medications: New oxycodone-acetaminophen [Endocet] 5-325 mg tablet 1 tab PO Q6H PRN (Reason: pain (scale score 7-10)) Qty: 10 0RF Discharge Orders: Discharge Order (Routine); Ordered 10/13/21 Ordered By: Long Harrison Diet: advance to usual diet Activity on Discharge: No heavy lifting Stand Alone Forms: Patient Portal Discharge page Activity Restrictions/Additional Instructions: If the incision area is tender, you may apply an ice pack for short intervals (No more than 20 minutes on, followed by at least 20 minutes off). Do not apply heat. Do not use creams, lotions, or topical antibiotics unless instructed to do so by your surgeon. These can cause infection or allergic reaction. Ok to shower. Remove clear dressings 3 days following your procedure. You have steri strips (small white cloth strips) covering your incision- these will fall off ~1 week. No heavy lifting (>10lbs)! Follow up in office with Dr. Harrison in 1 week. ([phone]) Call Your Doctor If: -Your temperature exceeds 101.5? F -You experience excessive pain or swelling -You have an unexpected reaction to medication -You have excessive bleeding -You experience continued vomiting/nausea -Your incision begins to separate -Your incision shows signs of infection such as increased redness, swelling, excessive pain, drainage (light blood or clear fluid is normal) or heat Care Plan Goals: Return to baseline health and gradual return to activity following recovery period. Health Concerns: acute appendicitis Plan of Treatment: s/p laparoscopic appendectomy F/u in office in 1 week Assessment: Doing well post op
[2021-10-13 12:00] VITALS: BP 117/57; PULSE 89; RESP 20; TEMP 37; O2SAT 98
== END 2021-10-13 15:00 | disposition home or self-care (01) | DRG 234 ==
LOC: HO.ED 10-12 01:11 → HO.EDOVER 10-12 02:10 → HO.S3 10-12 18:33
PROVIDERS: Surgery; Admitting Provider Surgery; Emergency Provider Internal Medicine; Visit Provider Surgery
PROC: 0DTJ4ZZ Resection of Appendix, Percutaneous Endoscopic Approach (ICD-10-PCS; CPT 44970; principal; 2021-10-12 11:00)
DX: K35.80 Unspecified acute appendicitis (principal); Z20.822 Contact with and (suspected) exposure to COVID-19
CPT/HCPCS: 44970; 74177; 80048; 80076; 81003; 83605; 85025; 87040; 87635; 88304; 96361; 96365; 96375; 99024; 99284; 99285; J2250; J2270; J2405; J2543; J3010; Q9967